=== PATIENT | male | born 2000 ===

== ENCOUNTER 2024-12-03 23:23 | Emergency (ER) | payer BC ==
[~2024-12-03] VITALS: Ht 182.9 cm; Wt 81.6 kg
[2024-12-03 23:25] VITALS: PULSE 78; RESP 18; TEMP 97.5
[2024-12-04] MEDS: DIPHTH,PERTUSS(ACELL),TET VAC 0.5 ML SYRINGE IM ONE (00:03)
[2024-12-04] MEDS: TETANUS/DIPHTHERIA TOX ADULT 0.5 ML SYR IM ONE (00:15)
[2024-12-04 00:16] VITALS: BP 142/77; PULSE 78; RESP 18; TEMP 97.5; O2SAT 98
== END 2024-12-04 00:19 | disposition home or self-care (01) ==
LOC: FSED 23:34
DX: S91.311A Laceration without foreign body, right foot, initial encounter (principal); W25.XXXA Contact with sharp glass, initial encounter; Y92.89 Other specified places as the place of occurrence of the external cause
CPT/HCPCS: 90714; 99284